=== PATIENT | female | born 1990 | race Caucasian/White ===

== ENCOUNTER 2016-11-21 21:29 | Inpatient (IN) | payer OTHER ==
[~2016-11-21] VITALS: Ht 170.2 cm; Wt 113.4 kg
[2016-11-21] MEDS ORDERED: Lactated Ringer's 1,000 ML IV PRN (21:58)
[2016-11-21] MEDS ORDERED: Hemorrhage Kit, Post Partum XX ONE (22:00)
[2016-11-21] MEDS ORDERED: Sodium Chloride LOK Flush 10 mL Syringe IVFLUSH PRN (22:00)
[2016-11-21] MEDS ORDERED: Oxytocin 30 Units/500 mL LR 30 UNITS in IV Premix 1 EACH IV PRN (22:00)
[2016-11-21] MEDS ORDERED: Carboprost 250 mCg/mL Inj IM PRN (22:00)
[2016-11-21] MEDS ORDERED: Oxytocin 10 Unit/mL Inj IM PRN (22:00)
[2016-11-21] MEDS ORDERED: Methylergonovine 0.2 mg/mL Inj IM PRN (22:00)
[2016-11-21] MEDS ORDERED: Carboprost 250 mCg/mL Inj IM ONE (22:01)
[2016-11-21] MEDS ORDERED: Oxytocin 10 Unit/mL Inj ONE (22:01)
[2016-11-21] MEDS ORDERED: Ondansetron 2 mg/mL 2 mL Inj ONE (22:01)
[2016-11-21] MEDS ORDERED: Morphine PF 1 mg/mL 10 mL Inj ONE (22:01)
[2016-11-21] MEDS ORDERED: Bupivacaine-MPF 0.75% 30 mL Inj ONE (22:01)
[2016-11-21] MEDS ORDERED: CeFAZolin 2 Gm/50 mL D5W IV Premix IV ONE (22:10)
[2016-11-21] MEDS ORDERED: Clindamycin 900 mg/50 mL D5W IV ONE (22:10)
[2016-11-21] MEDS ORDERED: Sodium Citrate-Citric Acid 30 mL Solution PO ONE (22:10)
--- NOTE | 2016-11-21 22:12 | PCM.HPANE ---
Patient Data Surgeon Admitting Provider:Lory Varner MD Attending Provider:Lory Varner MD Primary Care Physician:Kailna Valentine CNM Other Provider: Reason for Visit Active Labor Ht/WT & BMI Body Mass Index Allergies Coded Allergies: No Known Allergies (Unverified Allergy, Unknown, 05/10/14) Uncoded Allergies: egg protein - GI side effects (Adverse Reaction, Intermediate, Diarrhea, ) Past Anesthesia History Anesthesia History: Denies:: Abnormal Airway, Anesthesia Reactions, Difficult Intubation, Fam Anesthesia Reaction, Fam Malignant Hypertherm, Malignant Hyperthermia Diabetes History Hx Diabetes?: No History History of ENT Problems?: No HEENT History: Denies:: Abnormal Airway Cataracts Difficult Intubation Dysphagia Glaucoma Hearing Problem Sinus Problem TMJ Denture Type: None Teeth Condition: Within Normal Limits Hx of Heart Problems?: No Cardiovascular History: Denies:: Congestive Heart Failure Hypertension Hx of Respiratory Problem?: Yes Respiratory History: Positive for:: Asthma Cough Denies:: Tuberculosis Hx Neurologic Problems?: No Hx of GI Problems?: No Hx of Problems?: No HX of Peritoneal Dialysis: No Female Hx: Positive for:: Currently Denies:: Endometriosis Pelvic Inflammatory Problems with Breasts? Skin History: Denies:: History Skin Disorders? Pressure Ulcers Hx Musculoskeletal Problems?: No Musculoskeletal History: Denies:: Back Injury Degenerative Joint Fibromyalgia Joint Replacement Musculoskeletal Trauma Myasthenia Gravis Osteoarthritis Rheumatoid Arthritis Systemic Lupus Hx of Psycho/Social Problems?: Yes Psycho Social History: Positive for:: Anxiety Denies:: Bipolar Disorder Hx Depression Suicide Attempt Hx Surgeries?: No Hx Diabetes: No Hx Alcohol Use: Yes (occasionally; NONE IN A LONG TIME)Hx Substance Use: No Smoking Status: Former Smoker Have You Smoked inLast 12 mo: No Stop/Bang Risk Assessment Category Category 1A: Patient has history of documented sleep apnea, and HAS NOT received any narcotic, sedative or anesthesia administration during this stay. Category 1B: Patient has history of documented sleep apnea, and HAS received any narcotic , sedative or anesthesia administration during this stay Category 2: Patient has SUSPECTED Obstructive Sleep Apnea, and HAS received any narcotic , sedative or anesthesia administration during this stay. Category 3: Patient has SUSPECTED Obstructive Sleep Apnea and HAS NOT received narcotic, sedative or anesthesia administration during this stay. Category 4: Outpatient in Procedural Areas with known sleep apnea or who screen positive for High Risk via the STOP/BANG questionnaire. Exam Exam General Appearance: Alert, Oriented X3, Cooperative, No Acute Distress HEENT/AIRWAY: MP 2, Neck Movement (from), Mouth Opening (wnl) Lungs: Clear to Auscultation Heart: Exam Unremarkable Plan Impression Patient chart reviewed, patient interviewed and anesthestic plan with risks, benefits, and alternatives discussed, and informed consent obtained. ASA Physical Status: ASA2 Mod Systemic Disease Anesthetic Plan: SAB Bene/Risks/Altern/Consents: Yes HP Complete Prior to Induction: Yes Patrick Van MD Nov 21, 2016 22:12
[2016-11-21] MEDS ORDERED: Sodium Citrate-Citric Acid 15 mL Solution PO ONE (22:15)
[2016-11-21 22:30] LABS: Mean Corpuscular Hemoglobin 27.9 pg (27.0-35.0); Mean Corpuscular Volume 83.7 fL (81-100)
[2016-11-21] MEDS ORDERED: Atropine 0.4 mg/mL Inj IV PRN (23:25)
[2016-11-21] MEDS ORDERED: Dexamethasone 4 mg/mL Inj IVPUSH PRN (23:25)
[2016-11-21] MEDS ORDERED: EPHEDrine Sulfate 50 mg/mL Inj IVPUSH PRN (23:25)
[2016-11-21] MEDS ORDERED: Ondansetron 2 mg/mL 2 mL Inj IVPUSH PRN (23:25)
[2016-11-21] MEDS ORDERED: Morphine PF 1 mg/mL 10 mL Inj INTRATHEC ONE (23:25)
[2016-11-21] MEDS ORDERED: HYDROmorphone 1 mg/mL Inj IVPUSH PRN (23:25)
[2016-11-21] MEDS ORDERED: fentaNYL-PF 50 mCg/mL 2 mL Inj IVPUSH PRN (23:25)
--- NOTE | 2016-11-21 23:33 | HP ---
[address] [address] HISTORY AND PHYSICAL PATIENT: NOMAN ELENA : 1990 MR#: [id number] ADMIT: 11/21/2016 JOB ID: [id number] CHIEF COMPLAINT: Rupture of membranes. HISTORY OF PRESENT ILLNESS: This is a 26-year-old, G3, P0-0-2-0 female presenting at 38 plus 2 weeks gestational age with EDC of December 03, 2016, who is a no doc patient presenting with rupture of membranes as noted above. Her care has been at the [facility], but she has been known to be in breech presentation since 32 weeks with a bicornuate uterus. Her is otherwise also complicated by early marijuana use at the start of . She also has a history of a right-sided ectopic treated with methotrexate in the remote past and one spontaneous . PAST MEDICAL HISTORY: Denies. PAST SURGICAL HISTORY: Tonsillectomy in her teens. OBSTETRICAL HISTORY: 1. G1 was a right-sided ectopic treated with methotrexate. 2. G2 was SAB at approximately seven weeks along. 3. G3 is her current , complicated as noted above. SOCIAL HISTORY: She denies any tobacco or alcohol use. She did use marijuana early in , none currently though. Urine drug screen is pending. FAMILY HISTORY: Noncontributory. MEDICATIONS: Include vitamins. ALLERGIES: She has no known drug allergies but sensitivity to EGG PROTEIN. LABORATORY DATA: Shows blood type of A-positive, antibody screen negative, rubella immune, hep B surface antigen negative, RPR nonreactive, HIV negative, and GBS negative. OBJECTIVE: At the time of admission, her blood pressure is slightly elevated, it is 147/85. Her pulse is 106, respiratory rate is 18, her temperature is 36.4. General: She is awake, alert, oriented. She is in no acute distress. Heart shows regular rate and rhythm. Her lungs are clear to auscultation bilaterally. Her abdomen is soft, nontender, nondistended. Gravid with size larger than dates. She has had a 60 pound weight gain this . Her extremities showed 3+ lower extremity pitting edema, 2+ DTRs, and no clonus. Cervical check by the nurse reveals that she is 5 cm dilated, grossly ruptured and breech presentation. Bedside ultrasound confirms breech presentation. heart tones show 140 baseline, moderate variability with accelerations present. She is abdoulaye every 3-4 minutes but not feeling her contractions. ASSESSMENT AND PLAN: This is a 26-year-old, G3, P0-0-2-0 female at 38 plus 2 weeks gestational age admitted for spontaneous rupture of membranes with breech presentation. At this point in time, I would recommend proceeding with a primary low transverse section. Risks, benefits and alternatives have been discussed with her and she elects to proceed. Urine drug screen is pending given her history of marijuana usage. Her blood pressure is slightly elevated at admission. PIH labs are ordered and pending, and this will be monitored closely. All questions and concerns of the patient were answered prior to the procedure. JANNET
[2016-11-22] MEDS ORDERED: LANOlin HPA 7 Gm Ointment TOPICAL PRN (00:20)
[2016-11-22] MEDS ORDERED: Sodium Chloride LOK Flush 10 mL Syringe IVFLUSH PRN (00:20)
[2016-11-22] MEDS ORDERED: Hemorrhage Kit, Post Partum XX ONE (00:20)
[2016-11-22] MEDS ORDERED: Methylergonovine 0.2 mg/mL Inj IM PRN (00:20)
[2016-11-22] MEDS ORDERED: Oxytocin 10 Unit/mL Inj IM PRN (00:20)
[2016-11-22] MEDS ORDERED: Oxytocin 30 Units/500 mL LR 30 UNITS in IV Premix 1 EACH IV PRN (00:20)
[2016-11-22] MEDS ORDERED: Carboprost 250 mCg/mL Inj IM PRN (00:20)
--- NOTE | 2016-11-22 00:22 | PCM.ANEP1 ---
Post Anesthesia PACU Phase 1 Assessment Anesthetic Administered: SAB Level of Alertness: Awake, talking AL's with Equal Strength: Yes Pain: No Nausea or Vomiting: No CV Function & Hydration Stable: Yes Airway Device: Oxygen Delivery: Room Air Lungs: Normal Air Movement Dermatome Level: T10 (Umbilicus) PACU Phase 2 Assessment Complications: No Follow up Care: No Patient Instructions Provided: N/A Patrick Van MD Nov 22, 2016 00:22
--- NOTE | 2016-11-22 00:54 | OP ---
[address] [address] OPERATIVE REPORT PATIENT: NOMAN ELENA : 1990 MR#: [id number] ADMIT: 11/21/2016 JOB ID: [id number] DATE OF SURGERY: 11/21/2016 PREOPERATIVE DIAGNOSIS(ES): 1. A 38-week intrauterine with spontaneous rupture of membranes. 2. Marijuana use early in . 3. Elevated blood pressure at the time of admission. 4. Sixty-pound weight gain in the . POSTOPERATIVE DIAGNOSIS(ES): 1. A 38-week intrauterine with spontaneous rupture of membranes. 2. Marijuana use early in . 3. Elevated blood pressure at the time of admission. 4. Sixty-pound weight gain in the . PROCEDURE PERFORMED: Repeat primary low transverse section with delivery of a liveborn male , born at 2325 hours on 11/21/2016, weighing 7 pounds 13 ounces with Apgars of 7 at one minute, 9 at five minutes. SURGEON: Lory Varner M.D. STEAM PAN SPONGER: Ayo Womack M.D., who was necessary for safe completion of the case. ANESTHESIA: Spinal anesthetic. ESTIMATED BLOOD LOSS: 700 cc. FLUID REPLACEMENT: 1100 cc of crystalloid. URINE OUTPUT: 50 cc of clear yellow urine. FINDINGS: Liveborn male infant with spontaneous cry and spontaneous movement of all four extremities. Bicornuate uterus with a rudimentary left horn and what feels to be a potential intrauterine septum. COMPLICATIONS: None apparent. INDICATIONS: This is a 26-year-old, G3, P0-0-2-0 female who is presenting at 38 + 2 weeks gestational age with an EDC of December 03, 2016 complaining of spontaneous rupture of membranes. Additionally, she is noted to be in breech presentation and with a bicornuate uterus. [facility] [place] and she was planning to transfer care but did not do so prior to her admission for rupture of membranes. She was checked at the time of admission, noted to 5 cm dilated, and a bedside ultrasound confirmed that she was in breech presentation. Because of this, she was then admitted to undergo a planned section. PROCEDURE IN DETAIL: The patient was taken to the operating room where she was given antibiotics preoperatively. She was placed in supine position with a leftward tilt. She was prepped and draped in the usual sterile fashion for section after spinal anesthesia had been placed. Using a scalpel, the abdomen was entered sharply. This was brought down sharply to the level of the rectus fascia. The fascia was then incised in the midline. Blunt and sharp dissection was used to separate the fascia from the underlying rectus muscle. The peritoneum was entered bluntly and extended bluntly bilaterally. A bladder blade was then placed. A small bladder flap was created by lifting the peritoneum and incising bilaterally and reflecting the peritoneum downward off the lower uterine segment. The bladder blade was then replaced and a small incision was made over the lower uterine segment revealing a small amount of clear amniotic fluid. This incision was extended bluntly bilaterally. The buttocks were then elevated to the uterine incision and delivered through there. The legs were then delivered. The left shoulder and arm were then delivered. The fetus was then rotated and the right arm was delivered and lastly the vertex was delivered atraumatically through the uterine incision. The cord was clamped and cut after a 60-second cord clamping delay on which was cut short due to concern for minimal spontaneous cry. Cord blood was then obtained. The placenta delivered intact spontaneously. It was then passed off the table. The uterus was removed from the abdominal cavity and a left rudimentary horn was noted. The uterus was covered with a moist lap sponge and cleaned and there was noted to be what felt like potentially a small intrauterine septum. The bladder blade was then replaced and the uterus was closed in a single locking layer of 0-Vicryl. A second imbricating layer was placed on top of this and a [id number] stitch was needed in the midline to achieve hemostasis. Due to decreased hemostasis, Hemabate was also given intraoperatively. After hemostasis was noted, the uterus was then replaced into the abdominal cavity and again hemostasis was assured. Cautery was used to ensure hemostasis low uterine segment. The rectus muscle was inspected and noted to be hemostatic. The fascia was then reapproximated with a running nonlocking stitch of 0-Vicryl. The subcutaneous tissue layer was closed with plain gut suture and the skin was closed with 4-0 Vicryl. The patient tolerated this procedure well. Recovered in Labor and Delivery with her infant. All sponge, needle, instrument counts were correct.
[2016-11-22] MEDS: Lactated Ringer's 1,000 ML IV SCH ×3 (06:25→16:18)
[2016-11-22] MEDS ORDERED: Acetaminophen IV 1,000 MG in IV Premix 1 EACH IV PRN (06:45)
--- NOTE | 2016-11-22 09:00 | PCM.PNOBPP ---
Subjective Date of Service Nov 22, 2016 Post : Primary C[facility]re[facility] Delivery Visit History HISTORY OF PRESENT ILLNESS: This is a 26-year-old, G3, P0-0-2-0 female presenting at 38 plus 2 days gestational age with EDC of December 03, 2016, who is a no doc patient presenting with rupture of membranes as noted above. Her care has been at the [facility], but she has been known to be in breech presentation since 32 weeks with a bicornuate uterus. Her is otherwise also complicated by early marijuana use at the start of . She also has a history of a right-sided ectopic treated with methotrexate in the remote past and one spontaneous . ALLERGIES: She has no known drug allergies but sensitivity to EGG PROTEIN. Lochia: Other (moderate) Pain Management: PO pain meds Gastrointestinal: Good Appetite, No N/V Postop Activity: Ambulating in Room Only Labs LABORATORY DATA: Shows blood type of A-positive, antibody screen negative, rubella immune, hep B surface antigen negative, RPR nonreactive, HIV negative, and GBS negative. Group B Strep Results: Negative Rubella: Immune Blood Type: A RH Type: Positive Labs Laboratory Tests 11/21/16 22:15: White Blood Count 15.9, Red Blood Count 4.91, Hemoglobin 13.7, Hematocrit 41.1, Mean Corpuscular Volume 83.7, Mean Corpuscular Hemoglobin 27.9, Mean Corpuscular Hemoglobin Concent 33.3, Red Cell Distribution Width 14.8, Platelet Count 129, Hematology Comments Exam Vital Signs Vital Signs VS - Last 72 Hours, by Label Date Time Temp Pulse Resp B/P Pulse Ox O2 Delivery O2 Flow Rate FiO2 11/22/16 00:22 Room Air Vital Signs: VS reviewed, stable Exam Abdomen: Fundus firm Perineum: Intact : Voiding without difficulty Extremities: No cords, Normal pulses, No tenderness/swelling, Edema 1+ Lungs: Clear to Auscultation, Normal Air Movement Heart: Regular Rate/Rhythm, Normal S1, Normal S2, No Murmurs/Rubs/Gallops General: Alert, Oriented X3, Cooperative Surgical Wound : Incision General Appearence: Intact, Well Approximated, Incision Healing, No Erythemia, No Discharge, Wound under dressing Dressing & Drainage Status: Dry & Intact, Changed, No Odor OB Post Assessment/Plan Assessment This is a 26-year-old, G3, P0-0-2-0 female at 38 plus 2 days gestational age admitted for spontaneous rupture of membranes with breech presentation. Delivered 11/22/16 via primary low transverse section. Pain Evaluation: Adequate Pain Control VTE Mechanical Devices: Intermittant Pneumatic CD Post plan: Continue routine post care, Discharge home tomorrow Plan: Conintue routine post care Continue IVF LR 100 mls/hr, consider stopping with good PO fluid intake and stable vitals Attending Statement I saw patient and examined her. I agree with above evaluation and plan. DEL JOE DO Nov 22, 2016 09:00 Prisca Clark MD Dec 03, 2016 11:58
[2016-11-22] MEDS: oxyCODONE-Acetamin 5-325 mg Tablet PO PRN (22:08)
[2016-11-23] MEDS: Lactated Ringer's 1,000 ML IV SCH ×3 (00:18→16:18)
[2016-11-23] MEDS: oxyCODONE-Acetamin 5-325 mg Tablet PO PRN ×2 (03:34→20:45)
[2016-11-23 07:07] LABS: Mean Corpuscular Hemoglobin 28.1 pg (27.0-35.0); Mean Corpuscular Volume 86.4 fL (81-100)
--- NOTE | 2016-11-23 07:11 | PCM.DIOB ---
Obstetrical Disch Instruction Date of Service: Nov 23, 2016 Dates of Hospitalization Date of Hospital Admission Nov 21, 2016 at 22:00 Providers Admitting Physician: Lory Varner MD Primary Care Physician: Kalina Valentien CNM Attending Physician: Lory Varner MD Discharge Diagnosis Discharge Diagnosis S/p delivery via repeat cesarian section Problems: Diet Discharge Diet: No restrictions Activity Discharge Activity-General: Pelvic Rest for 6 weeks, Try not to overdue, No lifting >15 pounds for 2 weeks, No lifting >10 pounds for 4-6 weeks Dressing and Incisional Care Dressing Care: Keep dressing clean, dry & intact, Allow Steri Stripes to fall off, Change soiled dressing, Remove outer dressing after 24 hrs (and apply new dressing) Hygiene: May shower, DO NOT soak incision under water, NO bathtub, hot tub or whirlpool, Sitz bath Additional Instructions Discharge Instructions Colase 100 mg twice daily for constipation Ibuprofen 800 mg every 8 hours for pain percocet 5-325 mg every 6 hours for pain Iron supplement FeSO4 325 mg daily Pelvic rest for 6 weeks Follow up in clinic in 2-4 weeks Follow Up Plan Follow Up Plan \ Follow up in clinic in 2-4 weeks Call your provider for: Fever or Chills, Shortness of breath, Heavy vaginal bleeding, Heavy bleeding, Epigastric pain, Excessive constipation, Vaginal discomfort, Red painful breasts DEL JOE DO Nov 23, 2016 07:11
--- NOTE | 2016-11-23 07:21 | PCM.PNOBPP ---
Subjective Date of Service Nov 23, 2016 Post : Primary Ceserean Delivery Visit History This is a 26-year-old, G3, P0-0-2-0 female presenting at 38 plus 2 days gestational age with EDC of December 03, 2016, who is a no doc patient presenting with rupture of membranes as noted above. Her care has been at the [facility], but she has been known to be in breech presentation since 32 weeks with a bicornuate uterus. Her is otherwise also complicated by early marijuana use at the start of . She also has a history of a right-sided ectopic treated with methotrexate in the remote past and one spontaneous . Subjective Today patient Lochia: Other (moderate) Pain Management: PO pain meds Gastrointestinal: Good Appetite, No N/V Postop Activity: Ambulating in Room Only Group B Strep Results: Negative Rubella: Immune Blood Type: A RH Type: Positive Labs Laboratory Tests 11/21/16 22:15: Hematology Comments 11/23/16 06:53: Exam Vital Signs Vital Signs Hr 98 BP 114/66 T 36.7 F 98%RA OB Post Assessment/Plan Assessment This is a 26-year-old, G3, P0-0-2-0 female at 38 plus 2 days gestational age admitted for spontaneous rupture of membranes with breech presentation. Delivered 11/22/16 via primary low transverse section. Pain Evaluation: Adequate Pain Control VTE Mechanical Devices: Intermittant Pneumatic CD Post plan: Continue routine post care, Discharge home tomorrow Plan: Continue routine post care Ibuprofen 800 mg Q6 hrs PRN pain Percocet 5-354 for breakthrough pain Repeat CBC in AM Discontinue IVF LR 100 mls/hr, good PO fluid intake and stable vitals Attending Statement The patient was seen and examined together with Dr. Frederick Joe DO on 2016 and I agree with the history, exam and plan as outlined in the note above. FREDERICK JOE DO Nov 23, 2016 07:21 Manjit Cool MD Nov 23, 2016 12:07
[2016-11-23 10:05] VITALS: BP 124/68; PULSE 111; RESP 16
[2016-11-23] MEDS ORDERED: FERR-83 PO (13:27)
[2016-11-23] MEDS ORDERED: IBUP800T28 PO (13:27)
[2016-11-23] MEDS ORDERED: OXYC1TAB24 PO (13:27)
[2016-11-23] MEDS ORDERED: Lanolin TOPICAL (13:27)
[2016-11-23] MEDS ORDERED: DOCU-41 PO (13:27)
[2016-11-24] MEDS: Lactated Ringer's 1,000 ML IV SCH ×2 (00:18→08:18)
--- NOTE | 2016-11-24 09:56 | PCM.DC.OB ---
Obstetrical Discharge Summary Date of Service Nov 24, 2016 Date of hospital admission Nov 21, 2016 at 22:00 Providers Admitting Physician: Lory Varner MD Primary Care Physician: Kalina Valentine CNM Attending Physician: Lory Varner MD Hospital Course: 1. A 38-week intrauterine with spontaneous rupture of membranes. 2. Marijuana use early in . 3. Elevated blood pressure at the time of admission. 4. Sixty-pound weight gain in the . 26 Y G3, now P1-0-2-1 Status post PROCEDURE PERFORMED: Repeat primary low transverse section with delivery of a liveborn male , born at 2325 hours on 11/21/2017, weighing 7 pounds 13 ounces with Apgars of 7 at one minute, 9 at five minutes. 129/70 103 18 36.5 Laboratory Tests 72 Hours Test 11/21/16 22:15 11/21/16 22:32 11/21/16 22:50 11/23/16 06:53 White Blood Count 15.9th/mm3 (3.8-10.1) 12.3th/mm3 (3.8-10.1) Red Blood Count 4.91mil/mm3 (3.90-5.20) 3.74mil/mm3 (3.90-5.20) Hemoglobin 13.7g/dL (12.0-15.6) 10.5g/dL (12.0-15.6) Hematocrit 41.1% (35.0-46.0) 32.3% (35.0-46.0) Mean Corpuscular Volume 83.7fL (81-100) 86.4fL (81-100) Mean Corpuscular Hemoglobin 27.9pg (27.0-35.0) 28.1pg (27.0-35.0) Mean Corpuscular Hemoglobin Concent 33.3% (32.0-37.0) 32.5% (32.0-37.0) Red Cell Distribution Width 14.8% (12.3-15.4) 15.3% (12.3-15.4) Platelet Count 129bil/L (150-400) 119bil/L (150-400) Hematology Comments Blood Urea Nitrogen 7mg/dL (6-20) Creatinine 0.33mg/dL (0.57-1.00) Uric Acid 4.3mg/dL (2.6-7.2) Aspartate Amino Transf (AST/SGOT) 13U/L (0-50) Alanine Aminotransferase (ALT/SGPT) 9U/L (0-32) Urine Random Creatinine 106mg/dL (16-392) Urine Random Total Protein 23mg/dL (0-15) Urine Protein/Creatinine Ratio 0.22 (0-200) Urine Opiates Screen Negative Urine Methadone Screen Negative Urine Barbiturates Screen Negative Urine Amphetamines Screen Negative Urine Benzodiazepines Screen Negative Urine Cocaine Metabolite Screen Negative Urine Cannabinoids Screen Negative ([Lanolin]) 2 APPLIC/GM OINT 1 APPLIC TOPICAL DIRECTED PRN PRN for breast care Prescribed by: DEL JOE DO Docusate Sodium (Colace) 100 Mg Capsule 100 MG PO BID Prescribed by: DEL JOE DO Ferrous Sulfate (Ferrous Sulfate) 325 Mg Tablet 325 MG PO DAILY Prescribed by: DEL JOE DO Ibuprofen (Ibuprofen) 800 Mg Tablet 600 MG PO Q8H PRN PRN For Pain Prescribed by: DEL JOE DO oxyCODONE-Acetaminophen 5-325 mg (oxyCODONE-Acetaminophen 5-325 mg) 1 Each Tablet 1-2 TAB PO Q4H PRN PRN For Pain Prescribed by: DO Radha GARCIA Omaima A MD Nov 24, 2016 09:56
[2016-11-24 10:37] VITALS: BP 129/70; PULSE 103; RESP 18
== END 2016-11-24 13:00 | disposition home or self-care (01) | DRG 766 ==
LOC: FBCO 21:29 → FBC 22:00
PROVIDERS: ADMIT Obstetrics & Gynecology; ATTEND Obstetrics & Gynecology
PROC: 10D00Z1 Extraction of Products of Conception, Low, Open Approach (ICD-10-PCS; principal; 2016-11-22)
DX: O32.1XX0 Maternal care for breech presentation, not applicable or unspecified (principal); Z3A.38 38 weeks gestation of pregnancy; Z37.0 Single live birth; O34.211 Maternal care for low transverse scar from previous cesarean delivery; O34.03 Maternal care for unspecified congenital malformation of uterus, third trimester; Q51.3 Bicornate uterus; R03.0 Elevated blood-pressure reading, without diagnosis of hypertension